=== PATIENT | female | born 1990 | race African-American/Black ===

== ENCOUNTER 2017-08-26 06:19 | Emergency (ER) | payer MEDICAID ==
[~2017-08-26] VITALS: Ht 165.1 cm; Wt 73.0 kg
[~2017-08-26 06:19] MED LIST: ALBUTEROL SULF8.5 GM INH; AZITHROMYCIN250 MG ORAL; BACTRIM-DS1 EA ORAL; CEPHALEXIN500 MG ORAL; NORCO 5-325 TA1 EACH ORAL; PRENATAL CAPSU1 EAC1 PO; RANITIDINE HCL150 MG ORAL
[2017-08-26] MEDS ORDERED: Pantoprazole Inj IV ONE (07:00)
[2017-08-26] MEDS ORDERED: Mylanta II UD 30ml ORAL ONE (07:00)
--- NOTE | 2017-08-26 07:06 | Emergency Room Report ---
History of Present Illness General Chief Complaint: Abdominal Pain Source: Patient Present Illness HPI 27YOF with 3 days of epigastric pain 6/10 - radiating to back - intermittent pain Associated with nausea/vomiting/diarrhea States symptoms started right after eating pork on pizza and she "has an allergy to pork." Denies previous abd/pelvic surgery in the past Denies other PMHx, PSHx Denies ETOH, drug abuse No OTC meds Allergies: Coded Allergies: No Known Allergies (Unverified , 02/04/13) Patient History Past Medical History: none Past Surgical History: none Pertinent Family History: none Social History: Denies: smoking, alcohol use, drug use Last Menstrual Period: 08/06/17 Now: No Immunizations: UTD Reviewed Nursing Documentation: PMH: Agreed, PSxH: Agreed Nursing Documentation-PMH Past Medical History: No Stated History Review of Systems All Other Systems: negative except mentioned in HPI Physical Exam Vital Signs Date Time Temp Pulse Resp B/P (MAP) Pulse Ox O2 Delivery O2 Flow Rate FiO2 08/26/17 06:23 99.1 93 16 131/92 98 Room Air Sp02 EP Interpretation: reviewed, normal General Appearance: normal inspection, well appearing, no apparent distress, alert, GCS 15, non-toxic Head: normocephalic, atraumatic Eyes: bilateral eye PERRL, bilateral eye EOMI ENT: normal ENT inspection, hearing grossly normal, normal pharynx, no angioedema, normal voice, TMs + canals normal, uvula midline, moist mucus membranes Neck: normal inspection, full range of motion, supple, thyroid normal, no meningismus, no bony tend Respiratory: normal inspection, lungs clear, normal breath sounds, no rhonchi, no respiratory distress, no retraction, no accessory muscle use, no wheezing, speaking full sentences Cardiovascular #1: regular rate, rhythm, no edema, no JVD, normal capillary refill Gastrointestinal: normal inspection, normal bowel sounds, non tender, soft, no mass, no peritonitis, non-distended, no guarding, no hernia, no pulsatile mass Genitourinary: no CVA tenderness Musculoskeletal: normal inspection, back normal, normal range of motion, no calf tenderness, pelvis stable, Devang's Sign negative Neurologic: normal inspection, alert, oriented x3, responsive, 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 LFTs and lipase are normal. Urinalysis does not show infection Improved with antacid, anti-emetic recommended prescription Pepcid, followup with fiber technician for endoscopy as needed ER course: Patient has remained stable during ED stay. Disposition: Patient is to be discharged to home. Prescriptions given are pepcid Patient is instructed to follow up with their primary care doctor within 5 days. Patient is instructed to follow up with endoscopy/GI in 1 week Strict return precautions discussed with patient such as fever, chills, worsening/severe pain, nausea, vomiting, which may indicate severe illness. Patient verbalizes understanding and agrees with plan. Please note that this Emergency Department Report was dictated using [employer] technology software, occasionally this can lead to erroneous entry secondary to interpretation by the dictation equipment Last Vital Signs Date Time Temp Pulse Resp B/P (MAP) Pulse Ox O2 Delivery O2 Flow Rate FiO2 08/26/17 06:23 99.1 93 16 131/92 98 Room Air Status: improved Disposition: HOME, SELF-CARE Scripts Famotidine (PEPCID) 20 Mg Tablet 20 MG ORAL BID for 7 Days, #30 TAB 0 Refills Prov: SHO QUINONEZ M.D. 08/26/17 SHO QUINONEZ M.D. Aug 26, 2017 07:06
[2017-08-26] MEDS: LR 1000ml 1,000 ML IV SCH ×2 (07:23→08:01)
[2017-08-26 07:37] LABS: BASOPHILS % (AUTO) 0.7 % (0.0-2.0); EOSINOPHILS % (AUTO) 0.4 % (0.0-3.0); HEMATOCRIT 38.3 % (37.0-47.0); HEMOGLOBIN 12.5 G/DL (12.0-16.0); MEAN CORPUSCULAR VOLUME 76 FL (80-99); MONOCYTES % (AUTO) 8.1 % (1.0-10.0); NEUTROPHILS % (AUTO) 71.8 % (45.0-75.0); PLATELET COUNT 242 K/UL (150-450); RED BLOOD COUNT 5.06 M/UL (4.20-5.40); RED CELL DISTRIBUTION WIDTH 12.5 % (11.6-14.8); WHITE BLOOD COUNT 8.8 K/UL (4.8-10.8)
[2017-08-26 07:38] LABS: APPEARANCE,URINE CLEAR; BILIRUBIN, URINE NEGATIVE (NEGATIVE); GLUCOSE, URINE (UA) NEGATIVE (NEGATIVE); KETONES,URINE NEGATIVE (NEGATIVE); LEUKOCYTE ESTERASE ,URINE 1+ (NEGATIVE); NITRITE,URINE NEGATIVE (NEGATIVE); PH,URINE 9 (4.5-8.0); PROTEIN,URINE 2+ (NEGATIVE); UROBILINOGEN,URINE 1 MG/DL (0.0-1.0)
[2017-08-26 07:44] LABS: COLOR,URINE YELLOW
[2017-08-26 07:50] VITALS: BP 165/108
[2017-08-26] MEDS ORDERED: NKM (07:51)
[2017-08-26 07:52] LABS: ANION GAP 9 mmol/L (5-15); BLOOD UREA NITROGEN 10 mg/dL (7-18); CALCIUM 9.2 MG/DL (8.5-10.1); CARBON DIOXIDE 25 MMOL/L (21-32); CHLORIDE 103 MMOL/L (98-107); POTASSIUM 3.7 MMOL/L (3.5-5.1); SODIUM 137 MMOL/L (136-145)
[2017-08-26 07:54] LABS: ALANINE AMINOTRANSFERASE 20 U/L (12-78); ALBUMIN 4.2 G/DL (3.4-5.0); ALBUMIN/GLOBULIN RATIO 1.2 (1.0-2.7); ALKALINE PHOSPHATASE 58 U/L (46-116); ASPARTATE AMINO TRANSFERASE 19 U/L (15-37)
[2017-08-26] MEDS ORDERED: PEPCID20 MG ORAL (08:19)
[2017-08-26 08:38] VITALS: BP 154/83
[2017-08-26] MEDS ORDERED: FAMOTIDINE20 MG ORAL (16:25)
== END 2017-08-26 08:41 | disposition home or self-care (01) ==
LOC: EMR 07:00
DX: R10.13 Epigastric pain (principal)
CPT/HCPCS: 36415; 80053; 81003; 81025; 83690; 85025; 96361; 96374; 96375; 99284; C9113; J2405; J7120

== ENCOUNTER 2018-04-04 11:21 | Emergency (ER) | payer MEDICAID ==
[~2018-04-04] VITALS: Ht 165.1 cm; Wt 69.4 kg
[~2018-04-04 11:21] MED LIST changes: +FAMOTIDINE20 MG ORAL; +NKM; +PEPCID20 MG ORAL
[2018-04-04] MEDS ORDERED: Norco 5mg/325mg tab PO ONE (12:00)
[2018-04-04] MEDS ORDERED: Bacitracin Oint UD TOPIC ONE (12:00)
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
[2018-04-04 13:02] VITALS: BP 139/82
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
[2018-04-04] MEDS ORDERED: IBUPROFEN600 MG ORAL (13:16)
[2018-04-04] MEDS ORDERED: NORCO 5-325 TA1 EACH ORAL (13:16)
[2018-04-04 13:26] VITALS: BP 139/82
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
== END 2018-04-04 13:30 | disposition home or self-care (01) ==
LOC: EMR 13:20
DX: S00.83XA Contusion of other part of head, initial encounter (principal); R51 Headache; Y09 Assault by unspecified means
CPT/HCPCS: 70450; 70486; 99284

== ENCOUNTER 2020-07-24 18:35 | Inpatient (IN) | payer MEDICAID ==
[~2020-07-24] VITALS: Ht 162.6 cm; Wt 74.8 kg
[~2020-07-24 18:35] MED LIST changes: +IBUPROFEN600 MG ORAL
[2020-07-24 19:05] VITALS: BP 138/100
--- NOTE | 2020-07-24 19:15 | NUR ---
ED Nurse Note: Pt walked into ED for c/o congestin and "wheezing at nighttime." Pt lungs are clear to auscultation. Pt is alert and orientedx4, ambulatory. Pt has been seen by PA. She denies nausea, vomiting, diarrhea. no other COVID symptoms.
--- NOTE | 2020-07-24 19:23 | Emergency Room Report ---
History of Present Illness General Chief Complaint: Upper Respiratory Illness Source: Patient (Reyna Olguin) Present Illness HPI 30 YO female presents to the ED c/o 10 in severity mid chest discomfort that she describes as wheezing/gurgling sensation only at nighttime when laying down. Patient reports during the day she is completely asymptomatic. She denies cough, fevers, chills, sore throat or abdominal pain. Patient denies history of asthma, COPD or smoking history. She reports she recently was tested for COVID- 19 and her results were negative. She denies abdominal tenderness, nausea/vomiting, constipation or diarrhea. She denies cardiac history. She denies swelling of the lower extremities. She denies hemoptysis or sputum production. Denies CP or palpitations. (Reyna Olguin) Allergies: Coded Allergies: No Known Allergies (Unverified , 02/04/13) COVID-19 Screening Contact w/high risk pt: No Experienced COVID-19 symptoms?: No COVID-19 Testing performed HEEL PADDER: No COVID-19 Screening: Negative COVID-19 COVID-19 Testing Source: nasal (Reyna Olguin) Patient History Past Medical History: see triage record Past Surgical History: none Pertinent Family History: none Now: No Reviewed Nursing Documentation: PMH: Agreed; PSxH: Agreed (Reyna Olguin) Nursing Documentation-PMH Past Medical History: No Stated History (Reyna Olguin) Review of Systems All Other Systems: negative except mentioned in HPI (Reyna Olguin) Physical Exam Vital Signs Date Time Temp Pulse Resp B/P (MAP) Pulse Ox O2 Delivery O2 Flow Rate FiO2 07/24/20 18:47 98.2 108 18 145/102 (116) 97 Room Air Sp02 EP Interpretation: reviewed, normal General Appearance: no apparent distress, alert, GCS 15, non-toxic Head: normocephalic, atraumatic Eyes: bilateral eye normal inspection, bilateral eye PERRL ENT: hearing grossly normal, normal voice Neck: full range of motion Respiratory: chest non-tender, lungs clear, normal breath sounds, no rhonchi, no respiratory distress, no accessory muscle use, no wheezing, speaking full sentences Cardiovascular #1: regular rate, rhythm, no edema, normal capillary refill Cardiovascular #2: 2+ radial (R) Musculoskeletal: normal range of motion, gait/station normal, non-tender Neurologic: alert, motor strength/tone normal, oriented x3, sensory intact, responsive, speech normal Psychiatric: judgement/insight normal Skin: no rash (Reyna Olguin) Medical Decision Making PA Attestation Dr. Pressley Is my supervising Physician whom patient management has been discussed with. (Reyna Olguin) Diagnostic Impression: Primary Impression: CHF due to valvular disease Additional Impressions: New onset of congestive heart failure Leukocytosis Qualified Codes: D72.828 - Other elevated white blood cell count Bilateral pleural effusion Goiter ER Course 30 YO female presents to the ED c/o 10 in severity mid chest discomfort that she describes as wheezing/gurgling sensation with short of breath feeling only at nighttime when laying down. Patient reports during the day she is completely asymptomatic. She denies cough, fevers, chills, sore throat or abdominal pain. Patient denies history of asthma, COPD or smoking history. She reports she rec ently was tested for COVID-19 and her results were negative. She denies abdominal tenderness, nausea/vomiting, constipation or diarrhea. She denies cardiac history. She denies swelling of the lower extremities. She denies hemoptysis or sputum production. Denies CP or palpitations. She does reports the term acid reflux is familiar to her and she may have had it in the past. She denies taking control/estrogen. Denies recent travel or immobilization. Denies calf pain. Ddx considered but are not limited to GE, colitis, , SBO, H.pylori, Gastritis, PNA, PE, MT, pericarditis just to name a few. Vital signs: Pt is tachycardic, remaining VS are WNL. pt. is afebrile, O2 saturation of 97% on RA H&PE are most consistent with GERD - no evidence to suggest acute abdomen on physical exam. classical symptoms only at night when lying flat. ORDERS: -CXR: "Linear airspace densities in the right lung base with mild obscuration of the costophrenic angle. Suggestion of right lung base atelectasis. An underlying infectious process is not definitively excluded."-- Per radiology. EKG: * abnormal : Sinus tachycardia at a rate of 115 bpm with some possible left atrial enlargement and left ventricular hypertrophy. T wave abnormality in the inferior lateral leads- T-wave inversion -CBC: wbx 12. 2 -CMP: WNL -Troponin: 0.006 -D-Dimer: 1.49 PT/PTT: wnl -Urine Hcg: Negative -CTA Chest w. contrast: ED INTERVENTIONS: -Mylanta PO -Lidocaine PO -Pepcid PO Labs Test 07/24/20 20:15 White Blood Count 12.4 K/UL (4.8-10.8) Red Blood Count 5.42 M/UL (4.20-5.40) Hemoglobin 13.1 G/DL (12.0-16.0) Hematocrit 39.9 % (37.0-47.0) Mean Corpuscular Volume 74 FL (80-99) Mean Corpuscular Hemoglobin 24.1 PG (27.0-31.0) Mean Corpuscular Hemoglobin Concent 32.7 G/DL (32.0-36.0) Red Cell Distribution Width 14.3 % (11.6-14.8) Platelet Count 283 K/UL (150-450) Mean Platelet Volume 7.6 FL (6.5-10.1) Neutrophils (%) (Auto) 67.3 % (45.0-75.0) Lymphocytes (%) (Auto) 25.6 % (20.0-45.0) Monocytes (%) (Auto) 5.4 % (1.0-10.0) Eosinophils (%) (Auto) 0.8 % (0.0-3.0) Basophils (%) (Auto) 0.9 % (0.0-2.0) Prothrombin Time 11.5 SEC (9.30-11.50) Prothromb Time International Ratio 1.0 (0.9-1.1) Activated Partial Thromboplast Time 28 SEC (23-33) D-Dimer 1.49 mg/L FEU (0.00-0.49) Urine HCG, Qualitative Negative (NEGATIVE) Sodium Level 139 MMOL/L (136-145) Potassium Level 3.5 MMOL/L (3.5-5.1) Chloride Level 104 MMOL/L (98-107) Carbon Dioxide Level 25 MMOL/L (21-32) Anion Gap 10 mmol/L (5-15) Blood Urea Nitrogen 16 mg/dL (7-18) Creatinine 1.2 MG/DL (0.55-1.30) Estimat Glomerular Filtration Rate > 60 mL/min (>60) Glucose Level 95 MG/DL (74-106) Calcium Level 8.9 MG/DL (8.5-10.1) Total Bilirubin 1.1 MG/DL (0.2-1.0) Direct Bilirubin 0.1 MG/DL (0.0-0.3) Aspartate Amino Transf (AST/SGOT) 24 U/L (15-37) Alanine Aminotransferase (ALT/SGPT) 27 U/L (12-78) Alkaline Phosphatase 76 U/L (46-116) Troponin I 0.006 ng/mL (0.000-0.056) Total Protein 7.5 G/DL (6.4-8.2) Albumin 4.1 G/DL (3.4-5.0) Globulin 3.4 g/dL Albumin/Globulin Ratio 1.2 (1.0-2.7) (Reyna Olguin) ER Course Please see above note. Patient history and examined by me. 8 days of increasing orthopnea and dyspnea on exertion. No reported fever or productive cough. On exam resting tachycardia Patient with goiter. Systolic (2/6 pulmonic area) and diastolic murmur (1/6 heard pulmonic area radiating to axilla). Pattern most likely with mitral regurgitation. Fine crackles at bases. Elevated white count - no left shift. D-dimer positive. CTA with left ventricular dilatation and regurgitation into IVC. No PE. Added thyroid function test and BNP. Admit telemetry. BNP elevated. TFTs normal. Coreg ordered. Dr. Lott ordered lasix. Discussed results with patient and proposed admission with echocardiogram. Signed out to Dr. Lott for final disposition. Laboratory Tests Test 07/24/20 20:15 White Blood Count 12.4 K/UL (4.8-10.8) H Red Blood Count 5.42 M/UL (4.20-5.40) H Hemoglobin 13.1 G/DL (12.0-16.0) Hematocrit 39.9 % (37.0-47.0) Mean Corpuscular Volume 74 FL (80-99) L Mean Corpuscular Hemoglobin 24.1 PG (27.0-31.0) L Mean Corpuscular Hemoglobin Concent 32.7 G/DL (32.0-36.0) Red Cell Distribution Width 14.3 % (11.6-14.8) Platelet Count 283 K/UL (150-450) Mean Platelet Volume 7.6 FL (6.5-10.1) Neutrophils (%) (Auto) 67.3 % (45.0-75.0) Lymphocytes (%) (Auto) 25.6 % (20.0-45.0) Monocytes (%) (Auto) 5.4 % (1.0-10.0) Eosinophils (%) (Auto) 0.8 % (0.0-3.0) Basophils (%) (Auto) 0.9 % (0.0-2.0) Prothrombin Time 11.5 SEC (9.30-11.50) Prothrombin Time INR 1.0 (0.9-1.1) Activated Partial Thromboplast Time 28 SEC (23-33) D-Dimer 1.49 mg/L FEU (0.00-0.49) H Urine HCG, Qualitative Negative (NEGATIVE) Sodium Level 139 MMOL/L (136-145) Potassium Level 3.5 MMOL/L (3.5-5.1) Chloride Level 104 MMOL/L (98-107) Carbon Dioxide Level 25 MMOL/L (21-32) Anion Gap 10 mmol/L (5-15) Blood Urea Nitrogen 16 mg/dL (7-18) Creatinine 1.2 MG/DL (0.55-1.30) Estimated Glomerular Filtration Rate > 60 mL/min (>60) Glucose Level 95 MG/DL (74-106) Calcium Level 8.9 MG/DL (8.5-10.1) Total Bilirubin 1.1 MG/DL (0.2-1.0) H Direct Bilirubin 0.1 MG/DL (0.0-0.3) Aspartate Amino Transferase (AST) 24 U/L (15-37) Alanine Aminotransferase (ALT) 27 U/L (12-78) Alkaline Phosphatase 76 U/L (46-116) Troponin I 0.006 ng/mL (0.000-0.056) Pro-B-Type Natriuretic Peptide 1927 pg/mL (0-125) H Total Protein 7.5 G/DL (6.4-8.2) Albumin 4.1 G/DL (3.4-5.0) Globulin 3.4 g/dL Albumin/Globulin Ratio 1.2 (1.0-2.7) Thyroid Stimulating Hormone (TSH) 3.117 uiU/mL (0.358-3.740) Free Thyroxine 1.07 NG/DL (0.76-1.46) Free Triiodothyronine 3.3 pg/mL (2.3-4.2) (Yahir Pressley MD) ER Course Patient signed out to me. She presents with chief complaint of shortness of breath. Mostly with exertion and lying flat. Laboratory data and chest x-ray consistent with CHF. This is probably secondary to her valvular disease. Patient was seen by Dr. Pressley. Patient was pending transfer versus admission. Insurance approved for admission here. I contacted Dr. Mera for admission. (Lopez Lott MD) EKG Diagnostic Results Troponin ordered: Yes When was troponin ordered?: Jul 24, 2020 EKG Time: 20:01 Rate: tachycardiac - 115 Rhythm: NSR ST Segments: no acute changes Other Impression Sinus tachycardia at a rate of 115 bpm with some possible left atrial enlargement and left ventricular hypertrophy. T wave abnormality in the inferior lateral leads- T-wave inversion ASA given to the pt in ED: No PA Scribe Text This Interpretation was scribed by DAISHA Olguin. (Reyna Olguin) Rate: tachycardiac Rhythm: NSR ST Segments: other - Inferior T wave inversions (Yahir Pressley MD) Rhythm Strip Diag. Results EP Interpretation: yes Rhythm: no PVC's, no ectopy, other - Sinus tachycardia (Yahir Pressley MD) Chest X-Ray Diagnostic Results Chest X-Ray Diagnostic Results : Chest X-Ray Ordered: Yes # of Views/Limited/Complete: 1 View Indication: Shortness of Breath EP Interpretation: Yes PA Xray: Interpretation reviewed, by supervising MD, and agrees with findings. Interpretation: no consolidation, no effusion, no pneumothorax, no acute cardiopulmonary disease Impression: No acute disease Electronically Signed by: Reyna Olguin PA-C (Reyna Olguin) Chest X-Ray Diagnostic Results : Chest X-Ray Ordered: Yes # of Views/Limited/Complete: 1 View Indication: Shortness of Breath EP Interpretation: Yes Interpretation: no pneumothorax, other - increased cline and atelectasis R base Impression: Other (Yahir Pressley MD) CT/MRI/US Diagnostic Results CT/MRI/US Diagnostic Results : Imaging Test Ordered: CTA Chest w. contras Impression " ." --Per official radiology report- Please see report for specific details. (Reyna Olguin) CT/MRI/US Diagnostic Results : Imaging Test Ordered: CTA chest Impression 1. Mildly dilated left ventricle with reflux of contrast within the IVC. May represent underlying cardiomyopathy. Recommend clinical correlation. 2. A few subtle patchy bibasilar groundglass airspace opacities. Differential includes atypical infectious process in pulmonary edema. 3. Small, right greater than left, bilateral pleural effusions. 4. Peripheral linear airspace densities within the lung bases, may represent subsegmental atelectasis versus scarring. 5. No evidence of pulmonary embolism. (Yahir Pressley MD) Last Vital Signs Date Time Temp Pulse Resp B/P (MAP) Pulse Ox O2 Delivery O2 Flow Rate FiO2 07/24/20 18:47 98.2 108 18 145/102 (116) 97 Room Air (Reyna Olguin) Last Vital Signs Date Time Temp Pulse Resp B/P (MAP) Pulse Ox O2 Delivery O2 Flow Rate FiO2 07/24/20 22:40 82 145/102 07/24/20 19:35 98.2 18 97 Room Air 07/24/20 19:34 98 Status: improved (Yahir Pressley MD) Status: improved (Lopez Lott MD) Disposition: ADMITTED INPATIENT Condition: Serious Reyna Olguin Jul 24, 2020 19:23 Yahir Pressley MD Jul 24, 2020 22:14 Lopez Lott MD Jul 25, 2020 00:27
[2020-07-24 19:35] VITALS: BP 145/102
[2020-07-24] MEDS ORDERED: FAMOTIDINE20 MG ORAL ×2 (19:41)
--- NOTE | 2020-07-24 19:42 | Diagnostic Imaging Report ---
EXAM: XR Chest, 1 View CLINICAL HISTORY: PAIN TECHNIQUE: Frontal view of the chest. COMPARISON: No relevant prior studies available. FINDINGS: Lungs: Mildly hyperexpanded lungs. Linear airspace densities of the right lung base near the costophrenic angle with mild obscuration of the costophrenic angle. Pleural space: Unremarkable. No pneumothorax. Heart: Unremarkable. No cardiomegaly. Mediastinum: Unremarkable. Bones/joints: Unremarkable. IMPRESSION: Findings suggestive of right lung base atelectasis. Underlying infectious process is not definitively excluded. Recommend clinical correlation.
[2020-07-24] MEDS ORDERED: Omnipaque 350 100ml vial INJ PRN (20:15)
[2020-07-24 20:39] LABS: BASOPHILS % (AUTO) 0.9 % (0.0-2.0); EOSINOPHILS % (AUTO) 0.8 % (0.0-3.0); HEMATOCRIT 39.9 % (37.0-47.0); HEMOGLOBIN 13.1 G/DL (12.0-16.0); LYMPHOCYTES % (AUTO) 25.6 % (20.0-45.0); MEAN CORPUSCULAR VOLUME 74 FL (80-99); MONOCYTES % (AUTO) 5.4 % (1.0-10.0); NEUTROPHILS % (AUTO) 67.3 % (45.0-75.0); PLATELET COUNT 283 K/UL (150-450); RED BLOOD COUNT 5.42 M/UL (4.20-5.40); RED CELL DISTRIBUTION WIDTH 14.3 % (11.6-14.8); WHITE BLOOD COUNT 12.4 K/UL (4.8-10.8)
[2020-07-24 20:50] LABS: ANION GAP 10 mmol/L (5-15); BLOOD UREA NITROGEN 16 mg/dL (7-18); CALCIUM 8.9 MG/DL (8.5-10.1); CARBON DIOXIDE 25 MMOL/L (21-32); CHLORIDE 104 MMOL/L (98-107); CREATININE 1.2 MG/DL (0.55-1.30); POTASSIUM 3.5 MMOL/L (3.5-5.1); SODIUM 139 MMOL/L (136-145)
[2020-07-24 20:59] LABS: ALANINE AMINOTRANSFERASE 27 U/L (12-78); ALBUMIN 4.1 G/DL (3.4-5.0); ALBUMIN/GLOBULIN RATIO 1.2 (1.0-2.7); ALKALINE PHOSPHATASE 76 U/L (46-116); ASPARTATE AMINO TRANSFERASE 24 U/L (15-37); BILIRUBIN,TOTAL 1.1 MG/DL (0.2-1.0)
[2020-07-24 21:02] LABS: BILIRUBIN,DIRECT 0.1 MG/DL (0.0-0.3)
--- NOTE | 2020-07-24 21:06 | NUR ---
to ct scan via [facility]
--- NOTE | 2020-07-24 21:47 | Diagnostic Imaging Report ---
EXAM: CT Angiography Chest With Intravenous Contrast CLINICAL HISTORY: SOB TECHNIQUE: Axial computed tomographic angiography images of the chest with intravenous contrast. CTDI is 22.6 mGy and DLP is 196.3 mGy-cm. One or more of the following dose reduction techniques were used: automated exposure control, adjustment of the mA and/or kV according to patient size, use of iterative reconstruction technique. MIP reconstructed images were created and reviewed. COMPARISON: Chest radiograph dated 07/24/2020. FINDINGS: Limitations: Exam mildly limited due to motion artifact. Pulmonary arteries: Unremarkable. No pulmonary embolism. Aorta: No acute findings. No thoracic aortic aneurysm. Lungs: Peripheral linear airspace opacities within the bilateral lung bases. A few patchy areas of groundglass airspace opacity within the lung base. Pleural space: Small right greater than left pleural effusions. No pneumothorax. Heart: Mildly dilated left ventricle. No significant pericardial effusion. Scratch that there is reflux of contrast within the IVC. Bones/joints: No acute fracture. No dislocation. Soft tissues: Unremarkable. Lymph nodes: Unremarkable. No enlarged lymph nodes. IMPRESSION: 1. Mildly dilated left ventricle with reflux of contrast within the IVC. May represent underlying cardiomyopathy. Recommend clinical correlation. 2. A few subtle patchy bibasilar groundglass airspace opacities. Differential includes atypical infectious process in pulmonary edema. 3. Small, right greater than left, bilateral pleural effusions. 4. Peripheral linear airspace densities within the lung bases, may represent subsegmental atelectasis versus scarring. 5. No evidence of pulmonary embolism.
[2020-07-24 23:30] VITALS: BP 150/105
--- NOTE | 2020-07-24 23:30 | NUR ---
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 Pt denies chest pain; pt placed on 2 L nasal cannula.
[2020-07-25 02:00] VITALS: BP 153/112
--- NOTE | 2020-07-25 02:00 | NUR ---
Nurse Note: Pt asleep, no signs of distress, denies pain. Pt remains on 2L NC for supp. Chest rise and fall noted. VSS.
--- NOTE | 2020-07-25 03:50 | NUR ---
NURSE NOTES: Report received from GABI Nguyen from ED; admitting dx valvular heart failure; covid negative 07/24; AOX 3; On O2 therapy via NC 2L/min with O2 sat 98-100%; sinus tachycardia up to 120s; IV site on L AC 20 gauge saline locked. Awaiting for pt to be transferred to unit.
[2020-07-25 04:00] VITALS: BP 150/110
--- NOTE | 2020-07-25 04:00 | NUR ---
TRANSFER TO FLOOR: Patient transferred to [facility] as ordered, per maritza . Report given to GABI newman. All beloning sent with the pt. 2 RN'S took the pt on the floor in stable condition.
--- NOTE | 2020-07-25 04:03 | NUR ---
NURSE NOTES: Received pt via charsan martin from ED with 2 RNs; pt able to transfer from rsan martin to bed independently; noted ambulating to the bathroom; belongings at bedside and signed by pt; AOX 4, able to make needs known; placed on forging roll operator; v/s taken temp 97.1 F- MD 108- RR 20-BP 150/110-99% O2 saturation on 2L via NC; pt c/o SOB at rest; skin intact; PERRLA both eyes; oriented to room; call light within reach; bed locked and in low position; side rails x 2; will continue to monitor.
--- NOTE | 2020-07-25 04:38 | NUR ---
NURSE NOTES: Contacted Dr. Mera for admission orders; awaiting response; relayed pertinent lab works and meds given in ER.
--- NOTE | 2020-07-25 07:20 | NUR ---
NURSE HAND-OFF REPORT: Important Events on Shift: Admiited from ED @ 0403 for valvular heart disease, AOX 4, sinus tachycardia, ambulatory, on O2 2L/min via NC, SOB at rest/exertion, contacted Dr. Mera for admission orders, relayed pertinent labs, and meds given in ER; still awaiting for MD response regarding admission orders Patient Status: asleep; stable; comfortable in bed Diet: regular Pending Orders: admission orders Pending Results/Labs: N Pending MD notification: Dr. Mera Latest Vital Signs: Temperature 97.1 , Pulse 107 , B/P 150 /110 , Respiratory Rate 20 , O2 SAT 99 , Nasal Cannula, O2 Flow Rate 2.0 . Vital Sign Comment: pt baseline in ER EKG Rhythm: Sinus Tachycardia Rhythm change?: N MD Notified?: Y -Dr. Ede SALDIVAR Response: Message left await call Latest Ivan Fall Score: 20 Fall Risk: Low Risk Safety Measures: Call light Within Reach, Bed Alarm Zone 1, Side Rails Side Rails x2, Bed position Low and Locked. Fall Precautions: Yellow Socks Yellow Gown Patient Fall Education Report given to CORA Dye.
--- NOTE | 2020-07-25 07:35 | NUR ---
NURSE NOTES: Received patient A/A/Ox4, ambulates with steady gait. On O2 2L via NC. No acute resp distress noted @ this time. tolerated food intake well. PIV intact and patent. kept bed in the lowest position. siderails are upx2, bed alarm engaged and lock mode. call light is within easy reach. will cont to monitor.
[2020-07-25 08:07] VITALS: BP 132/97
[2020-07-25] MEDS ORDERED: Acetaminophen 500mg (ES) tab ORAL PRN (08:15)
[2020-07-25 12:09] VITALS: BP 138/96
--- NOTE | 2020-07-25 14:31 | NUR ---
CASE MANAGEMENT:REVIEW 30 YR OLD FEMALE PRESENTED TO ER CC; CONGESTION X1 WEEK PMH: VALVULAR DISEASE SI: BILATERAL PLEURAL EFFUSIONS. ACUTE CHF 98.3 108 18 145/102 97% ON RA WBC+12.4 IS: IV PEPCID MYLANTA PO COREG PO CTA CHEST CXR : TO TELEMETRY
--- NOTE | 2020-07-25 15:33 | Cardiac Electrophysiology PN ---
Subjective Subjective [id number] Objective Last 24 Hour Vital Signs Date Time Temp Pulse Resp B/P (MAP) Pulse Ox O2 Delivery O2 Flow Rate FiO2 07/25/20 12:09 98.1 107 21 138/96 (110) 100 07/25/20 12:00 98 07/25/20 09:13 97.9 07/25/20 09:00 Nasal Cannula 2.0 07/25/20 08:07 97.9 109 21 132/97 (109) 100 07/25/20 08:00 102 07/25/20 04:58 Nasal Cannula 2.0 07/25/20 04:00 97.1 108 20 150/110 (123) 99 07/25/20 04:00 107 07/25/20 04:00 97.5 97 18 145/109 98 Nasal Cannula 2.0 07/25/20 02:00 98.3 99 16 153/112 100 Nasal Cannula 2.0 07/24/20 23:30 98.4 100 16 150/105 99 Nasal Cannula 2.0 07/24/20 22:40 82 145/102 07/24/20 19:35 98.2 18 145/102 97 Room Air 07/24/20 19:34 82 18 Room Air 98 07/24/20 19:05 98.2 82 17 138/100 99 Room Air 07/24/20 19:05 82 17 Room Air 99 07/24/20 18:47 98.2 108 18 145/102 (116) 97 Room Air Intake and Output 07/24/20 07/25/20 19:00 07:00 Intake Total 360 ml Balance 360 ml Intake Oral 360 ml # Voids 1 Laboratory Tests Test 07/24/20 20:15 White Blood Count 12.4 K/UL (4.8-10.8) H Red Blood Count 5.42 M/UL (4.20-5.40) H Hemoglobin 13.1 G/DL (12.0-16.0) Hematocrit 39.9 % (37.0-47.0) Mean Corpuscular Volume 74 FL (80-99) L Mean Corpuscular Hemoglobin 24.1 PG (27.0-31.0) L Mean Corpuscular Hemoglobin Concent 32.7 G/DL (32.0-36.0) Red Cell Distribution Width 14.3 % (11.6-14.8) Platelet Count 283 K/UL (150-450) Mean Platelet Volume 7.6 FL (6.5-10.1) Neutrophils (%) (Auto) 67.3 % (45.0-75.0) Lymphocytes (%) (Auto) 25.6 % (20.0-45.0) Monocytes (%) (Auto) 5.4 % (1.0-10.0) Eosinophils (%) (Auto) 0.8 % (0.0-3.0) Basophils (%) (Auto) 0.9 % (0.0-2.0) Prothrombin Time 11.5 SEC (9.30-11.50) Prothromb Time International Ratio 1.0 (0.9-1.1) Activated Partial Thromboplast Time 28 SEC (23-33) D-Dimer 1.49 mg/L FEU (0.00-0.49) H Urine HCG, Qualitative Negative (NEGATIVE) Sodium Level 139 MMOL/L (136-145) Potassium Level 3.5 MMOL/L (3.5-5.1) Chloride Level 104 MMOL/L (98-107) Carbon Dioxide Level 25 MMOL/L (21-32) Anion Gap 10 mmol/L (5-15) Blood Urea Nitrogen 16 mg/dL (7-18) Creatinine 1.2 MG/DL (0.55-1.30) Estimat Glomerular Filtration Rate > 60 mL/min (>60) Glucose Level 95 MG/DL (74-106) Calcium Level 8.9 MG/DL (8.5-10.1) Total Bilirubin 1.1 MG/DL (0.2-1.0) H Direct Bilirubin 0.1 MG/DL (0.0-0.3) Aspartate Amino Transf (AST/SGOT) 24 U/L (15-37) Alanine Aminotransferase (ALT/SGPT) 27 U/L (12-78) Alkaline Phosphatase 76 U/L (46-116) Troponin I 0.006 ng/mL (0.000-0.056) Pro-B-Type Natriuretic Peptide 1927 pg/mL (0-125) H Total Protein 7.5 G/DL (6.4-8.2) Albumin 4.1 G/DL (3.4-5.0) Globulin 3.4 g/dL Albumin/Globulin Ratio 1.2 (1.0-2.7) Thyroid Stimulating Hormone (TSH) 3.117 uiU/mL (0.358-3.740) Free Thyroxine 1.07 NG/DL (0.76-1.46) Free Triiodothyronine 3.3 pg/mL (2.3-4.2) Sergio Abel MD Jul 25, 2020 15:33
--- NOTE | 2020-07-25 15:56 | NUR ---
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 AWAITS FOR FURTHER DIRECTIONS OR ORDERS. WILL CONT TO MONITOR.
[2020-07-25 16:10] VITALS: BP 144/108
--- NOTE | 2020-07-25 17:00 | Consultation ---
DATE OF CONSULTATION: 07/25/2020 INFECTIOUS DISEASES CONSULTATION CONSULTING PHYSICIAN: Pierre Robertson M.D. PRIMARY ATTENDING PHYSICIAN: Swapna Mera MD REASON FOR CONSULT: Leukocytosis. HISTORY OF PRESENT ILLNESS: This is a 30-year-old female admitted last night from home complaining of chest pain, wheezing. Symptoms were more when lying down. She has this problem for a week. Denies any cough, fever, chills, sore throat. PAST MEDICAL HISTORY: Insignificant. ALLERGIES: No known drug allergies. MEDICATIONS: Getting Tylenol. Got today's dose of Lasix, carvedilol, and famotidine at the time of admission. SOCIAL HISTORY: Single, however lives with her daughter. Occasional marijuana and smoking. No alcohol abuse. REVIEW OF SYSTEMS: As per history of present illness, but feels better after getting the medication last night. PHYSICAL EXAMINATION: VITAL SIGNS: Temperature 97.9, pulse 109, blood pressure 132/97. GENERAL APPEARANCE: Seems to have normal weight. No acute distress. HEAD AND NECK: Box conjunctivae. HEART: Normal rate. LUNGS: Clear. ABDOMEN: Soft, nontender. EXTREMITIES: She has no edema. LABORATORY AND DIAGNOSTIC DATA: WBC 12.4, hemoglobin 13.1, hematocrit 39.9, platelets 350. Sodium 139, potassium 3.5, chloride 104, bicarb 25, BUN 16, creatinine 1.2. BNP is 1927. CT angiogram of the chest showed mildly dilated left ventricle within the IVC. May have cardiomyopathy, pulmonary opacities, small bilateral pleural effusions, no pulmonary emboli. IMPRESSION: Systemic inflammatory response with leukocytosis and tachycardia, seems to have congestive heart failure with cardiomyopathy. RECOMMENDATION: Observe off antibiotic. We will follow up the CBC. We will follow up the cultures. At the end of my exam, I thank Dr. Mera for involving me in the care of this patient. Pierre Robertson M.D. DR: JOVANNI JOB#: [id number] CC: GIESLLA
--- NOTE | 2020-07-25 19:14 | NUR ---
NURSE HAND-OFF REPORT: Important Events on Shift:[EKG DONE, PAIN MGMT. ] Patient Status: [STABLE] Diet: [REG] Pending Orders: [LABS; 2D ECHO] Pending Results/Labs:[IN AM] Pending MD notification:[] Latest Vital Signs: Temperature 99.5 , Pulse 107 , B/P 144 /108 , Respiratory Rate 21 , O2 SAT 100 , Nasal Cannula, O2 Flow Rate 2.0 . Vital Sign Comment: [] EKG Rhythm: Sinus Rhythm Rhythm change?: N MD Notified?: Hedy Mera MD Response: Message left await call Latest Ivan Fall Score: 20 Fall Risk: Low Risk Safety Measures: Call light Within Reach, Bed Alarm Zone 1, Side Rails Side Rails x2, Bed position Low and Locked. Fall Precautions: Yellow Socks Yellow Gown Door Sign Patient Fall Education Report given to [SANDEEP].
--- NOTE | 2020-07-25 19:15 | Consultation ---
DATE OF CONSULTATION: 07/25/2020 CARDIOLOGY CONSULTATION CONSULTING PHYSICIAN: Sergio Abel MD REFERRING PHYSICIAN: Swapna Mera MD REASON FOR CONSULTATION: Abnormal electrocardiogram and tachycardia. HISTORY OF PRESENT ILLNESS: Patient is a 30-year-old lady who presented to emergency room complaining of chest discomfort. Patient has no prior past medical history. No prior hospitalizations. No medication at home. Patient's EKG showed sinus tachycardia, rate of 115 as well as left ventricular hypertrophy as well as inferolateral ischemia. Patient was short of breath, but no lower extremity edema. Patient does not have history of asthma or COPD. Patient was recently tested for COVID-19, which was negative. REVIEW OF SYSTEMS: Negative other than what was mentioned in the history of present illness. PAST MEDICAL HISTORY: As mentioned above. FAMILY HISTORY: Noncontributory. SOCIAL HISTORY: Lives at home. Does not smoke or drink alcohol or use drugs. PHYSICAL EXAMINATION: VITAL SIGNS: Show blood pressure of 138/96, pulse 107, respirations 18, temperature 98.1. HEAD AND NECK: Showed no JVD. LUNGS: Decreased breath sounds. CARDIOVASCULAR: Shows regular S1 and S2 with no gallop or murmur. ABDOMEN: Soft. EXTREMITIES: No pitting edema. LABORATORY DATA: Labs show white count 12.4, hemoglobin 13.5, hematocrit of 40, and platelet count is 283. Sodium 139, potassium 3.5, BUN of , creatinine of 1.2, and glucose of 98. Her BNP is 1927. INR is 1. D-dimer is 1.49. ASSESSMENT AND PLAN: 1. Elevated BNP and shortness of breath, likely congestive heart failure. Start the patient on Lasix 40 mg daily and get an echocardiogram for further evaluation and management. 2. Elevated D-dimer and sinus tachycardia. Patient underwent a chest CT angiogram that showed no evidence of pulmonary embolism. 3. Inferolateral ischemia on EKG. Currently, patient does not have any chest pain. We will get an echocardiogram for further evaluation and management. In the meantime, start the patient on Lasix 40 mg IV daily. 4. Diastolic hypertension with blood pressure of 96 and 97. Keep on Lasix and add Coreg to her medical regimen. Thank you very much for allowing me to participate in the care of this patient. Please do not hesitate to contact me for any questions regarding my evaluation. Sergio Abel M.D. DR: CALEB JOB#: [id number] CC:
--- NOTE | 2020-07-25 19:40 | NUR ---
NURSE NOTES: Pt received from GABI Dye. Pt is resting comfortably in bed and denies any pain. Pt is A/Ox4 and ambulatory. Pt is on cardiac monitoring ST and asymptomatic; aware. Pt is breathing unlabored on RA. Pt has LAC IV patent with skin dry and intact. Bed is locked in lowest position with call light within reach. Will continue to monitor
[2020-07-25 20:00] VITALS: BP 144/100
--- NOTE | 2020-07-25 22:31 | History and Physical Report ---
DATE OF ADMISSION: 07/24/2020 HISTORY OF PRESENT ILLNESS: The patient comes in with shortness of breath, orthopnea, exertional dyspnea, and 2-pillow orthopnea for about 8 days. The patient also has elevated D-dimer and the patient also has wheezing, has a history of bronchitis. Denies chest pain. Denies nausea, vomiting, or diarrhea. Denies cough. The patient is admitted for new-onset CHF and elevated BNP and dyspnea. The patient basically denies again abdominal pain. Denies rectal bleeding. Denies constipation. PAST MEDICAL HISTORY: History of bronchitis. PAST SURGICAL HISTORY: None. FAMILY HISTORY: Noncontributory. SOCIAL HISTORY: Does have a history of marijuana. Denies history of smoking. Denies history of alcohol abuse. MEDICATIONS: None. FAMILY HISTORY: Noncontributory. REVIEW OF SYSTEMS: HEENT: Denies headaches. RESPIRATORY: Reports shortness of breath and exertional shortness of breath for about 8 days. The patient states that she gets tired by moving around for about a week, has 2-pillow orthopnea, and now some wheezing at times. No coughing. No chest pain. EXTREMITIES: Denies pain. CENTRAL NERVOUS SYSTEM: Denies change in speech pattern. Denies weakness. PHYSICAL EXAMINATION: VITAL SIGNS: Temperature 97.2, pulse 78, blood pressure is 132/70. HEENT: PERRLA. NECK: Supple. No lymphadenopathy. CHEST: Clear to auscultation. CARDIOVASCULAR: Regular rate and rhythm. No murmurs or extra sounds. GASTROINTESTINAL: Soft, nontender, nondistended. No organomegaly. EXTREMITIES: No edema. NEUROLOGICAL: Moves all 4 extremities. Sensory intact to light touch. Reflexes equal on both sides. EKG shows T-wave inversions. Imaging was negative for PE. Initially, the patient had sinus tachycardia, D-dimer is elevated. ASSESSMENT AND PLAN: New-onset CHF and exertional dyspnea. Imaging was negative for PE. EKG showed T-wave inversions. I have basically consulted Dr. Abel and Dr. Pierre Robertson to rule out any infectious etiology and for the management of CHF. Swapna Mera M.D. DR: BHAVIN JOB#: [id number] CC:
[2020-07-26] VITALS: BP 138/94
[2020-07-26 04:00] VITALS: BP 144/100
--- NOTE | 2020-07-26 07:01 | NUR ---
NURSE HAND-OFF REPORT: Important Events on Shift:Pt continued scheduled medications Patient Status: Stable Diet: Cardiac Diet Pending Orders: Pending Results/Labs:AM Labs Pending MD notification: Latest Vital Signs: Temperature 98.2 , Pulse 112 , B/P 144 /100 , Respiratory Rate 20 , O2 SAT 95 , Nasal Cannula, O2 Flow Rate 2.0 . Vital Sign Comment: VSS EKG Rhythm: Sinus Tachycardia Rhythm change?: N MD Notified?: Hedy Mera MD Response: Message left await call Latest Ivan Fall Score: 20 Fall Risk: Low Risk Safety Measures: Call light Within Reach, Bed Alarm Zone 1, Side Rails Side Rails x2, Bed position Low and Locked. Fall Precautions: Yellow Socks Yellow Gown Door Sign Patient Fall Education Report given to Letty. ASHLEY.
--- NOTE | 2020-07-26 07:30 | NUR ---
NURSE NOTES: Received patient A/A/Ox4, ambulates with steady gait. On O2 2L via NC. No acute resp distress noted @ this time. tolerated food intake well. PIV intact and patent. Would like to go home today. awaiting for 2D echo to be done. No c/o pain/discomfort noted. kept bed in the lowest position. siderails are upx2, bed alarm engaged and lock mode. call light is within easy reach. will cont to monitor.
[2020-07-26 08:00] VITALS: BP 142/98
[2020-07-26 09:41] LABS: BASOPHILS % (AUTO) 0.8 % (0.0-2.0); EOSINOPHILS % (AUTO) 1.3 % (0.0-3.0); HEMATOCRIT 38.1 % (37.0-47.0); HEMOGLOBIN 12.7 G/DL (12.0-16.0); LYMPHOCYTES % (AUTO) 28.2 % (20.0-45.0); MEAN CORPUSCULAR VOLUME 72 FL (80-99); MONOCYTES % (AUTO) 7.9 % (1.0-10.0); NEUTROPHILS % (AUTO) 61.8 % (45.0-75.0); PLATELET COUNT 256 K/UL (150-450); RED BLOOD COUNT 5.31 M/UL (4.20-5.40); RED CELL DISTRIBUTION WIDTH 15.4 % (11.6-14.8); WHITE BLOOD COUNT 8.6 K/UL (4.8-10.8)
[2020-07-26 10:11] LABS: ANION GAP 9 mmol/L (5-15); BLOOD UREA NITROGEN 21 mg/dL (7-18); CALCIUM 8.7 MG/DL (8.5-10.1); CARBON DIOXIDE 28 MMOL/L (21-32); CHLORIDE 103 MMOL/L (98-107); CREATININE 1.2 MG/DL (0.55-1.30); POTASSIUM 3.7 MMOL/L (3.5-5.1); SODIUM 140 MMOL/L (136-145)
[2020-07-26 11:26] VITALS: BP 131/93
--- NOTE | 2020-07-26 15:02 | Cardiac Electrophysiology PN ---
Assessment/Plan Assessment/Plan 1. Elevated BNP and shortness of breath, likely congestive heart failure. On Lasix 40 mg daily. Echocardiogram results pending 2. Elevated D-dimer and sinus tachycardia. Patient underwent a chest CT angiogram that showed no evidence of pulmonary embolism. 3. Inferolateral ischemia on EKG. Currently, patient does not have any chest pain. We will get an echocardiogram for further evaluation and management. Likely will need stress test as out patient 4. Diastolic hypertension with blood pressure of 96 and 97. Keep on Lasix and Coreg to her medical regimen. Subjective Subjective No CP or SOB. Wants to go home.In SR Objective Last 24 Hour Vital Signs Date Time Temp Pulse Resp B/P (MAP) Pulse Ox O2 Delivery O2 Flow Rate FiO2 07/26/20 12:00 100 07/26/20 11:26 98.6 94 21 131/93 (106) 94 07/26/20 09:00 Nasal Cannula 2.0 07/26/20 08:15 100 142/98 07/26/20 08:00 98.1 100 21 142/98 (113) 100 07/26/20 08:00 91 07/26/20 04:00 112 07/26/20 04:00 98.2 102 20 144/100 (115) 95 07/26/20 00:00 94 07/26/20 00:00 97.8 103 20 138/94 (109) 96 07/25/20 21:02 102 144/100 07/25/20 21:00 Nasal Cannula 2.0 07/25/20 20:00 98.2 102 20 144/100 (115) 95 07/25/20 20:00 106 07/25/20 16:10 99.5 107 21 144/108 (120) 100 07/25/20 16:00 93 Intake and Output 07/25/20 07/26/20 19:00 07:00 Intake Total 480 ml 800 ml Balance 480 ml 800 ml Intake Oral 480 ml 800 ml # Voids 2 1 Laboratory Tests Test 07/26/20 06:55 White Blood Count 8.6 K/UL (4.8-10.8) Red Blood Count 5.31 M/UL (4.20-5.40) Hemoglobin 12.7 G/DL (12.0-16.0) Hematocrit 38.1 % (37.0-47.0) Mean Corpuscular Volume 72 FL (80-99) L Mean Corpuscular Hemoglobin 24.0 PG (27.0-31.0) L Mean Corpuscular Hemoglobin Concent 33.4 G/DL (32.0-36.0) Red Cell Distribution Width 15.4 % (11.6-14.8) H Platelet Count 256 K/UL (150-450) Mean Platelet Volume 7.5 FL (6.5-10.1) Neutrophils (%) (Auto) 61.8 % (45.0-75.0) Lymphocytes (%) (Auto) 28.2 % (20.0-45.0) Monocytes (%) (Auto) 7.9 % (1.0-10.0) Eosinophils (%) (Auto) 1.3 % (0.0-3.0) Basophils (%) (Auto) 0.8 % (0.0-2.0) Sodium Level 140 MMOL/L (136-145) Potassium Level 3.7 MMOL/L (3.5-5.1) Chloride Level 103 MMOL/L (98-107) Carbon Dioxide Level 28 MMOL/L (21-32) Anion Gap 9 mmol/L (5-15) Blood Urea Nitrogen 21 mg/dL (7-18) H Creatinine 1.2 MG/DL (0.55-1.30) Estimat Glomerular Filtration Rate > 60 mL/min (>60) Glucose Level 84 MG/DL (74-106) Calcium Level 8.7 MG/DL (8.5-10.1) Troponin I 0.005 ng/mL (0.000-0.056) Pro-B-Type Natriuretic Peptide Pending Thyroid Stimulating Hormone (TSH) 1.042 uiU/mL (0.358-3.740) Free Thyroxine 0.95 NG/DL (0.76-1.46) Objective HEAD AND NECK: Showed no JVD. LUNGS: Decreased breath sounds. CARDIOVASCULAR: Shows regular S1 and S2 with no gallop or murmur. ABDOMEN: Soft. EXTREMITIES: No pitting edema. Sergio Abel MD Jul 26, 2020 15:02
--- NOTE | 2020-07-26 15:36 | NUR ---
CASE MANAGEMENT:REVIEW 07/26/20 SI: CHF. BILATERAL PLEURAL EFFUSIONS 98.2 112 20 144/100 95% ON 2L/NC BUN+21 IS: COREG PO Q12 IV LASIX Q12 : TELEMETRY STATUS DCP: FROM HOME PLAN: 2DECHO
[2020-07-26 15:55] VITALS: BP 146/100
--- NOTE | 2020-07-26 16:07 | Cardiac Electrophysiology PN ---
Assessment/Plan Assessment/Plan 1. Elevated BNP and shortness of breath, due to newly diagnosed congestive heart failure with EF 20% by echo. On Lasix 40 mg daily. Add Coreg 3.125 bid, Lisinopril 10 daily and Aldactone 25 daily Need Cardiac cath to R/O CAD but says will come back later. 2. Elevated D-dimer and sinus tachycardia. Patient underwent a chest CT angiogram that showed no evidence of pulmonary embolism. 3. Inferolateral ischemia on EKG. Currently, patient does not have any chest pain. Echocardiogram Ef 20%. Need Cardiac cath to R/O CAD 4. Diastolic hypertension with blood pressure of 96 and 97. Keep on Lasix, ladactone, Lisinopril and Coreg DW RN Subjective Subjective No CP or SOB. Wants to go home due to baby sitting issue. Echo report just came back as EF was 20%.In SR Objective Last 24 Hour Vital Signs Date Time Temp Pulse Resp B/P (MAP) Pulse Ox O2 Delivery O2 Flow Rate FiO2 07/26/20 15:55 98.1 86 20 146/100 (115) 100 07/26/20 12:00 100 07/26/20 11:26 98.6 94 21 131/93 (106) 94 07/26/20 09:00 Nasal Cannula 2.0 07/26/20 08:15 100 142/98 07/26/20 08:00 98.1 100 21 142/98 (113) 100 07/26/20 08:00 91 07/26/20 04:00 112 07/26/20 04:00 98.2 102 20 144/100 (115) 95 07/26/20 00:00 94 07/26/20 00:00 97.8 103 20 138/94 (109) 96 07/25/20 21:02 102 144/100 07/25/20 21:00 Nasal Cannula 2.0 07/25/20 20:00 98.2 102 20 144/100 (115) 95 07/25/20 20:00 106 07/25/20 16:10 99.5 107 21 144/108 (120) 100 l Intake and Output 07/25/20 07/26/20 19:00 07:00 Intake Total 480 ml 800 ml Balance 480 ml 800 ml Intake Oral 480 ml 800 ml # Voids 2 1 Laboratory Tests Test 07/26/20 06:55 White Blood Count 8.6 K/UL (4.8-10.8) Red Blood Count 5.31 M/UL (4.20-5.40) Hemoglobin 12.7 G/DL (12.0-16.0) Hematocrit 38.1 % (37.0-47.0) Mean Corpuscular Volume 72 FL (80-99) L Mean Corpuscular Hemoglobin 24.0 PG (27.0-31.0) L Mean Corpuscular Hemoglobin Concent 33.4 G/DL (32.0-36.0) Red Cell Distribution Width 15.4 % (11.6-14.8) H Platelet Count 256 K/UL (150-450) Mean Platelet Volume 7.5 FL (6.5-10.1) Neutrophils (%) (Auto) 61.8 % (45.0-75.0) Lymphocytes (%) (Auto) 28.2 % (20.0-45.0) Monocytes (%) (Auto) 7.9 % (1.0-10.0) Eosinophils (%) (Auto) 1.3 % (0.0-3.0) Basophils (%) (Auto) 0.8 % (0.0-2.0) Sodium Level 140 MMOL/L (136-145) Potassium Level 3.7 MMOL/L (3.5-5.1) Chloride Level 103 MMOL/L (98-107) Carbon Dioxide Level 28 MMOL/L (21-32) Anion Gap 9 mmol/L (5-15) Blood Urea Nitrogen 21 mg/dL (7-18) H Creatinine 1.2 MG/DL (0.55-1.30) Estimat Glomerular Filtration Rate > 60 mL/min (>60) Glucose Level 84 MG/DL (74-106) Calcium Level 8.7 MG/DL (8.5-10.1) Troponin I 0.005 ng/mL (0.000-0.056) Pro-B-Type Natriuretic Peptide Pending Thyroid Stimulating Hormone (TSH) 1.042 uiU/mL (0.358-3.740) Free Thyroxine 0.95 NG/DL (0.76-1.46) Objective HEAD AND NECK: Showed no JVD. LUNGS: Decreased breath sounds. CARDIOVASCULAR: Shows regular S1 and S2 with no gallop or murmur. ABDOMEN: Soft. EXTREMITIES: No pitting edema. Sergio Abel MD Jul 26, 2020 16:07
[2020-07-26] MEDS ORDERED: LISINOPRIL5 MG ORAL (16:24)
[2020-07-26] MEDS ORDERED: COREG3.125 MG ORAL (16:24)
[2020-07-26] MEDS ORDERED: FUROSEMIDE40 MG ORAL (16:25)
[2020-07-26] MEDS ORDERED: SPIRONOLACTONE25 MG ORAL (16:25)
--- NOTE | 2020-07-26 16:43 | NUR ---
NURSE NOTES: PATIENT LEFT AMA DUE TO BABY SITTING ISSUE. NOTIFIED DR HAMMONDS FOR THE 2D ECHO RESULT. DR HAMMONDS SPOKE WITH THE PATIENT AND STIL INSISTING TO LEAVE. PMArnoldo YEPEZ INFORMED OF THE AMA. PERSONAL BELONGINGS NOTED. REMOVED ARTS THERAPIST. REMOVED IV HEPLOCK. NO ACUTE CARDIO-RESP DISTRESS NOTED. O2 SATURATION ON NORMAL RANGE. DENIES OF PAIN/DISCOMFORT. DROVE BY HERSELF. PARKED @ THE SITE ADMINISTRATOR. HANDED THE RX DONE BY DR HAMMONDS.
[2020-07-27] MEDS ORDERED: Spironolactone 25mg tab ORAL SCH (09:00)
[2020-07-27] MEDS ORDERED: Lisinopril 10mg tab ORAL SCH (09:00)
--- NOTE | 2020-07-28 12:40 | Discharge Summary ---
Discharge Summary Discharge Summary _ DATE OF ADMISSION: 07/24/2020 DATE OF DISCHARGE: 07/26/2020 Patient left AGAINST MEDICAL ADVICE REASON FOR ADMISSION: 30 years old female with no significant past medical history, presented to emergency department, complaning of the mid chest discomfort, described as wheezing/gurgling sensation only at night , when she was lying down. During the days she was completely asymptomatic. She denied cough and wheezing. No fever or chills. No sore throat. No abdominal pain. No history of asthma , no smoking history. Patient was recently tested for COVID-19, and result came back negative. She denied nausea , vomiting , constipation , or diarrhea. No abdominal tenderness. No cardiac history. Upon evaluation vital signs were stable. Slightly tachycardic with heart rate 106. Pulse oximetry stable on room air. Chest x-ray showed findings suggestive of right lung base atelectasis. Laboratory work-up revealed WBC 12.2. Electrolytes and renal parameters stable. Troponin negative.Pro BNP 1927. EKG showed sinus tachycardia with heart rate 115 with possible left atrial enlargement and left ventricular hypertrophy. D-dimer 1.49. Coagulation profile stable . urine test was negative. . TSH within normal limits. In emergency department patient received Pepcid, Mylanta , Lasix , Coreg and admitted for further management. CONSULTANTS: greenhouse instructor Dr. Kristy CLAROS specialist Dr. Pierre Robertson [facility] COURSE: Patient admitted to telemetry floor. Echocardiogram demonstrated moderate to severe left ventricular chamber size . Basal and mild anteroseptal and basal and mid inferolateral dyskinesia. Left ventricular ejection fraction estimated to be 20 to 25%. Moderate left ventricular hypertrophy. No evidence of pericardial effusion. Moderate to severe mitral regurgitation. Mitral inflow indicated restrictive pattern , indicating severely elevated left atrial pressure grade 3. Guideline directed medical therapy initiated with Lasix along with beta- tyson , ANKUR inhibitor and Aldactone. Volumes and cardiorenal parameters were closely monitored. Per greenhouse instructor patient will require cardiac catheterization to rule out coronary artery disease. Patient denied chest pain. Pulse oximetry was stable on room air. Patient has diastolic hypertension with blood pressure of 96 and 97 ; current management continued. Patient noted to have elevated D-dimer along with tachycardia. CT angiogram showed no evidence of pulmonary embolism. No evidence of infection. No fevers. ID specialist recommended to keep patient off antibiotic. Leukocytosis resolved, likely was reactive. ProBNP trended down: from initial 1927 to 952. On 07/26 patient decided to leave AGAINST MEDICAL ADVICE due to the baby sitting issues. The risks and consequences of signing AGAINST MEDICAL ADVICE were discussed with patient in detail. Patient verbalized understanding, nevertheless signed AMA form and left. Patient was instructed to follow with cardiac catheterization to rule out coronary artery disease. FINAL DIAGNOSES: Newly diagnosed acute congestive heart failure Cardiomyopathy with ejection fraction 20% Elevated D-dimer and sinus tachycardia ( CTA was negative for PE) Inferolateral ischemia on EKG Diastolic hypertension I have been assigned to dictate discharge summary for this account. I was not involved in the patient's management. Brenda Stafford NP Jul 28, 2020 12:40
== END 2020-07-26 16:30 | disposition left against medical advice (07) | DRG 194 ==
LOC: EMR 20:13 → 2E 22:35 → EDBEDREQ 07-25 01:48 → 2E 07-25 04:59
DX: I11.0 Hypertensive heart disease with heart failure (principal); R65.10 Systemic inflammatory response syndrome (SIRS) of non-infectious origin without acute organ dysfunction; I50.9 Heart failure, unspecified; I34.0 Nonrheumatic mitral (valve) insufficiency; I42.9 Cardiomyopathy, unspecified; R00.0 Tachycardia, unspecified; I25.9 Chronic ischemic heart disease, unspecified; J98.11 Atelectasis
CPT/HCPCS: 36415; 71045; 71275; 80048; 80053; 81025; 82248; 83880; 84439; 84443; 84481; 84484; 85025; 85379; 85610; 85730; 93005; 93306; 96374; 99285